=== PATIENT | male | born 1970 | race African-American/Black ===

== ENCOUNTER → 2019-12-29 | Outpatient (CLI) | payer OTHER ==
--- NOTE | 2019-12-29 13:54 | XR ---
EXAMINATION TYPE: XR knee limited LT DATE OF EXAM: 12/29/2019 CLINICAL HISTORY: Chronic left knee pain. TECHNIQUE: Frontal and lateral views of the left knee are obtained. COMPARISON: None. FINDINGS: There is no acute fracture/dislocation evident in left knee. Mild to moderate tricompartme nt joint space loss with mild spurring patellofemoral compartment. The overlying soft tissue appears unremarkable. IMPRESSION: As above.
--- NOTE | 2019-12-29 13:55 | XR ---
EXAMINATION TYPE: XR lumbosacral spine min 4V DATE OF EXAM: 12/29/2019 CLINICAL HISTORY: Chronic low back pain. TECHNIQUE: Frontal, lateral, and oblique images of the lumbar spine are obtained. COMPARISON: None FINDINGS: There are 5 lumbar type vertebral bodies identified. The lumbar spine shows straightened alignment without evidence of acute fracture or dislocation. Vertebral body heights are within normal limits. Severe disc space narrowing and anterior spurring with endplate sclerosis L5-S1 level. Mil d disc space narrowing with moderate anterior spurring L4-L5 level The oblique images appear within n ormal limits. Some vascular calcification overlying soft tissue is noted. IMPRESSION: As above.
--- NOTE | 2019-12-29 13:57 | XR ---
EXAMINATION TYPE: XR cervical spine comp DATE OF EXAM: 12/29/2019 TECHNIQUE: Frontal, lateral, oblique, and open mouth view of the cervical spine are obtained. HISTORY: M54.2 Cervicalgia COMPARISON: None FINDINGS: The cervical spine is visualized in its entirety from C1 thru the top of T1 level, there i s grade 1 retrolisthesis C2 on C3 and to a greater degree C3 and C4 without evidence of acute fractur e or dislocation. The pre-vertebral soft tissue appears within normal limits. The C1-C2 articulatio n is within normal limits on the open mouth view. Vertebral body heights are maintained. Mild disc s pace narrowing with mild anterior spurring C3-C4 level. Moderate disc space narrowing and mild to mod erate anterior spurring C5-C6 level. Mild disc space narrowing with large bridging osteophyte anterio rly at C6-C7 level. Mild to moderate disc space narrowing at C7-T1 level. The oblique images show brenna ral foraminal narrowing left C5-C6 and C6-C7 level due to marginal spurring. Overlying soft tissue is unremarkable. IMPRESSION: As above.
== END | disposition home or self-care (01) ==
LOC: RADXRMAIN 13:02
PROVIDERS: ATTEND Family Medicine
DX: M48.02 Spinal stenosis, cervical region (principal); M48.061 Spinal stenosis, lumbar region without neurogenic claudication; M43.12 Spondylolisthesis, cervical region; M25.78 Osteophyte, vertebrae; G95.89 Other specified diseases of spinal cord; M25.762 Osteophyte, left knee
CPT/HCPCS: 72050; 72110